=== PATIENT | male | born 1970 | race Caucasian/White ===

== ENCOUNTER 2024-05-23 01:39 | Emergency (ER) | payer BC ==
[2024-05-23 01:52] VITALS: TEMP 97.3
[2024-05-23 01:55] LABS: Glucose,Whole Blood 184 mg/dL (70-110)
[2024-05-23 01:55] LABS: ABG Base Excess -16.7 mmol/L; ABG Oxygen Saturation 99.8 % (94-97); ABG PCO2 25 mmHg (35-45); ABG PO2 381 mmHg (83-108); ABG TCO2 10 mmol/L (19-24); Allen Test Performed? Yes
[2024-05-23 01:58] LABS: ABG HCO3 10 mmol/L (21-25)
[2024-05-23] MEDS: SODIUM CHLORIDE 0.9% 1,000 ML IV ONE ×3 (02:00→02:41)
--- NOTE | 2024-05-23 02:10 | ED ---
General Adult HPI - General Stated complaint: SI attempt Source: EMS Mode of arrival: EMS Limitations: no limitations - History of Present Illness Initial comments: Patient is a 54-year-old male unknown past medical history presenting today for presumed suicide attempt. Per EMS report patient had gone to a fight with his around 9 PM during which the patient's had said she wanted to divorce him. Patient was then found later this evening around 130 unresponsive in the garage with the car running in the garage full of exhaust fumes. Nasal cannula O2 was put applied to patient and was transferred to the hospital. Blood glucose on EMS assessment was within normal limits. Of note patient has a history of prior suicide attempt where he apparently tried to shoot himself but the gun misfired. History is limited as patient is currently altered at this time and not answering questions. - Related Data Home Medications Medication Instructions Recorded Confirmed Omeprazole 20 mg PO DAILY 08/25/16 08/25/16 lisinopriL [Zestril] 10 mg PO DAILY 08/25/16 08/25/16 metFORMIN HCL [Glucophage] 1,000 mg PO BID 08/25/16 08/25/16 Allergies Allergy/AdvReac Type Severity Reaction Status Date / Time No Known Allergies Allergy Verified 08/25/16 16:35 Review of Systems ROS Statement: Those systems with pertinent positive or pertinent negative responses have been documented in the HPI. Limitations: ROS unobtainable due to patients medical condition Past Medical History Past Medical History: Diabetes Mellitus, GERD/Reflux, Hyperlipidemia, Hypertension, Osteoarthritis (OA) History of Any Multi-Drug Resistant Organisms: None Reported Past Surgical History: No Surgical Hx Reported Past Anesthesia/Blood Transfusion Reactions: No Reported Reaction Past Psychological History: No Psychological Hx Reported Past Alcohol Use History: None Reported Past Drug Use History: None Reported General Exam - General Exam Comments Initial Comments: PE: CONSTITUTIONAL: [no apparent distress, confused appearing, eyes open, respirations unlabored] SKIN: [warm, dry, no jaundice, hives or petechiae, there appears to be some skin moddling along pt's lower sides/hips] EYES:[ pupils are equally round, extraocular movements intact without nystagmus, clear conjunctiva, non-icteric sclera] HENT: [normocephalic, atraumatic, moist mucus membranes, oropharynx clear without exudates] NECK: , [Full range of motion, normal appearance] PULMONARY: [clear to auscultation without wheezes, rhonchi, or rales, normal excursion, no accessory muscle use and no stridor] CARDIOVASCULAR:[ regular rate, rhythm, normal S1 and S2. No appreciated murmurs, rubs or gallops. Strong radial adn DP pulses with intact distal perfusion. No lower extremity edema] GASTROINTESTINAL: [soft, active bowel sounds throughout, non-tender, non- distended, no palpable masses, no rebound or guarding. No hepatosplenomegaly] MUSCULOSKELETAL: [Extremities have no gross deformity, no edema, redness, or swelling. No calf swelling ] NEUROLOGIC: [_a/o x 0, GCS 9, eyes open spontaneously, patient does not verbally respond to questions, he withdraws from pain, peers confused. Moves all extremities x 4 weakly] PSYCHIATRIC:[unable to assess] Limitations: no limitations Course Vital Signs 05/23/24 05/23/24 05/23/24 01:47 02:06 02:15 Temperature 97.3 F L Pulse Rate 106 H 96 92 Respiratory 20 16 18 Rate Blood Pressure 109/77 103/59 92/53 O2 Sat by Pulse 96 96 96 Oximetry 05/23/24 05/23/24 02:58 03:15 Temperature Pulse Rate 93 89 Respiratory 18 16 Rate Blood Pressure 104/52 102/59 O2 Sat by Pulse 96 98 Oximetry EKG Findings - EKG Comments: EKG Findings:: Initial EKG does have significant artifact so repeat EKG was obtained. Sinus tachycardia, rate 108 bpm HI interval 172 ms QRS duration 141 ms QT/QTc 360/427 ms, normal axis, right bundle branch block, T wave inversions lead V3 V4, no STEMI EKG repeated. Repeat EKG performed at 1:56 AM. Sinus tachycardia, rate 100 bpm HI interval 145 ms T wave inversion lead V3, V4, right bundle branch block present, no ST elevations or significant depressions, no STEMI Medical Decision Making - Medical Decision Making Was pt. sent in by a medical professional or institution (, PA, WELLNESS NURSE, urgent care, hospital, or usp...) When possible be specific @ -[No] Did you speak to anyone other than the patient for history (EMS, parent, family, police, friend...)? What history was obtained from this source @ -Spoke with EMS personnel, state patient was found in garage unresponsive, upon finding patient there was heavy exhaust fumes throughout the garage Did you review nursing and triage notes (agree or disagree)? Why? @ -[I reviewed nursing and triage notes] Were old charts reviewed (outside hosp., previous admission, EMS record, old E KG, old radiological studies, urgent care reports/EKG's, usp records)? Report findings @ no pror records available for review Differential Diagnosis (chest pain, altered mental status, abdominal pain women, abdominal pain men, vaginal bleeding, weakness, fever, dyspnea, syncope, headache, dizziness, GI bleed, back pain, seizure, CVA, palpatations, mental health, musculoskeletal)? @Differential Altered Mental Status: Hypoglycemia, DKA, hypercapnia, ETOH, overdose, CO poisoning, trauma, myxedema coma, HTN encephalopathy, infection, psychosis, intercranial hemorrhage, hepatic encephalopathy, CVA, this is not meant to be an all-inclusive list EKG interpreted by me (3pts min.). @ -[As above] X-rays interpreted by me (1pt min.). @No cardiomegaly, consolidations pleural effusions or pneumothorax on my assessment of chest x-ray CT interpreted by me (1pt min.). @On my review of CT brain, I see no evidence of hemorrhage or mass effect U/S interpreted by me (1pt. min.). @ -[None done] What testing was considered but not performed or refused? (CT, X-rays, U/S, labs)? Why? @ -[None] What meds were considered but not given or refused? Why? @ -[None] Did you discuss the management of the patient with other professionals (professionals i.e. , PA, WELLNESS NURSE, lab, RT, psych nurse, social security benefits interviewer, gasket supervisor, teacher, logistics officer, nurse case management)? Give summary This case was discussed with toxicology, Jt, recommended hyperbaric oxygen, case was discussed with Dr. Murphy, hyperbaarist at [facility], kindly agrees patient would benefit from hyperbaric oxygen treatment, recommends transfer for hyperbaric oxygen. Case discussed with. Dr Germain emergency medicine physician at [facility] in [place], can accept patient for transfer Was smoking cessation discussed for >3mins.? @ -[No] Was critical care preformed (if so, how long)? @Yes, 35 minutes Were there social determinants of health that impacted care today? How? (Homelessness, low income, unemployed, alcoholism, drug addiction, transportation, low edu. Level, literacy, decrease access to med. care, assisted, rehab)? @ -[No] Was there de-escalation of care discussed even if they declined (Discuss DNR or withdrawal of care, Hospice)? @ -[No] What co-morbidities impacted this encounter? (DM, HTN, Smoking, COPD, CAD, Cancer, CVA, ARF, Chemo, Hep., AIDS, mental health diagnosis, sleep apnea, mo rbid obesity)? @ -[None] Was patient admitted / discharged? Hospital course, mention meds given and route, prescriptions, significant lab abnormalities, going to OR and other pertinent info. @ -Transferred to [facility] for hyperbaric oxygen therapy Pt is a 54-year-old gentleman with unknown past medical history presenting today for unresponsiveness after being found in his garage with the car running and heavy exhaust fumes throughout the garage. Per EMS report patient had just had an argument with his , and they decided they were . Blood Glucose on their assessment was within normal limits, patient was tachycardic and normotensive on their arrival. Patient seen and assessed upon arrival to the ER, his eyes are open, he appears confused, he does not give any verbal response to questions, very slowly follows commands and withdraws from painful stimuli. He does have breath sounds bilaterally, pupils are equal round reactive to light without focal deficits. He smells strongly of exhaust. Of chief concern is carbon monoxide toxicity and pt will require hyperbaric oxygen due to altered mental status with suspected carbon monooxide exposure. patient was immediately placed on a nonrebreather mask 15 L 100% FiO2, plan for carbon monoxide level check, ABG, lactic, CBC, CMP, acetaminophen level, salicylate level, blood alcohol, UDS, CT brain, chest x-ray. Case discussed with poison control, rec adding serum osmolality concerned the patient could have also ingested toxic alcohols after being found in the garage. This was added to patient's labs, they agree with plan for transferring for hyperbaric oxygen. We [place] attempt to [place] [facility] was told by their transfer center hyperbaric oxygen. Contacted [facility], case discussed with Dr. Andrade, see recs above. Pt accepted for transfer to [facility] ED to ED. On reassessment patient is more alert, he is able to state his name, more readily follows commands. ABG showed pH 7.20, pCO2 24.6, pO2 381, SpO2 9.8%, carbon oxide level 36.3%, methemoglobin level 0.6%,. Of note patient was petitioned by police for suspected suicide attempt. Discussed with patient, and now at bedside, need for and plan for transfer. They are agreeable w/ POC. Patient did briefly become hypotensive with a MAP of 62, status post almost 2 L normal saline boluses, third liter was ordered I suspect patient will have a high lactic acid and this will be required to help him clear the lactic, no documented history of heart failure. After initiating 3 L normal saline, blood pressure improved to 104/62 with a MAP of 71. His mentation continues to improve. Labs over significant for white blood cell count of 12.3, creatinine 1.59, there is no prior in our records to compare to, GFR 48, CK 268, troponin within normal limits, salicylates and acetaminophen levels are undetectable, blood alcohol 37. Air transport was attempted to be arranged in order to expidite hyperbaric O2 however due to whether this was unable to be arranged. Pt transferred via ground transport in stable condition. Undiagnosed new problem with uncertain prognosis? @ -[No] Drug Therapy requiring intensive monitoring for toxicity (Heparin, Nitro, Insulin, Cardizem)? @ -[No] Were any procedures done? @ -[No] Diagnosis/symptom? Carbon monoxide poisoning Acute, or Chronic, or Acute on Chronic? Acute Uncomplicated (without systemic symptoms) or Complicated (systemic symptoms)? Complicated Side effects of treatment? @ -[No] Exacerbation, Progression, or Severe Exacerbation? @ -[No] Poses a threat to life or bodily function? How? (Chest pain, [place], NV, pneumonia, PE, COPD, DKA, ARF, appy, cholecystitis, CVA, Diverticulitis, Homicidal, Suicidal, threat to staff... and all critical care pts) @Yes, could pose risk of permanent neurologic dysfunction and if left untreated - Lab Data Result diagrams: 05/23/24 01:54 05/23/24 01:54 Lab Results 05/23/24 05/23/24 05/23/24 Range/Units 01:43 01:52 01:54 WBC 12.3 H (3.8-10.6) k/uL RBC 4.70 (4.30-5.90) m/uL Hgb 14.2 (13.0-17.5) gm/dL Hct 43.8 (39.0-53.0) % MCV 93.2 (80.0-100.0) fL MCH 30.2 (25.0-35.0) pg MCHC 32.3 (31.0-37.0) g/dL RDW 13.1 (11.5-15.5) % Plt Count 380 (150-450) k/uL MPV 7.4 Neutrophils % 77 % Lymphocytes % 16 % Monocytes % 6 % Eosinophils % 0 % Basophils % 0 % Neutrophils # 9.4 H (1.3-7.7) k/uL Lymphocytes # 2.0 (1.0-4.8) k/uL Monocytes # 0.7 (0-1.0) k/uL Eosinophils # 0.1 (0-0.7) k/uL Basophils # 0.0 (0-0.2) k/uL PT (10.0-12.5) sec INR (<1.2) APTT (22.0-30.0) sec Sample Site rrad ABG pH 7.20 L (7.35-7.45) ABG pCO2 25 L (35-45) mmHg ABG pO2 381 H (83-108) mmHg ABG HCO3 10 L* (21-25) mmol/L ABG Total CO2 10 L (19-24) mmol/L ABG O2 Saturation 99.8 H (94-97) % ABG Base Excess -16.7 mmol/L Dawit Test Yes Hemoglobin 13.7 (13.0-17.5) gm/dL Carbon Monoxide, Quant (<10.0) % FiO2 100 % Sodium (137-145) mmol/L Potassium (3.5-5.1) mmol/L Chloride (98-107) mmol/L Carbon Dioxide (22-30) mmol/L Anion Gap mmol/L BUN (9-20) mg/dL Creatinine (0.66-1.25) mg/dL Est GFR (CKD-EPI)AfAm (>60 ml/min/1.73 sqM) Est GFR (CKD-EPI)NonAf (>60 ml/min/1.73 sqM) Glucose (74-99) mg/dL POC Glucose (mg/dL) 184 H (70-110) mg/dL POC Glu Parts Technician ID Juan Burgos Osmolality ([phone]) mOsm/kg Lactic Ac Sepsis Rflx Plasma Lactic Acid Franki (0.7-2.0) mmol/L Calcium (8.4-10.2) mg/dL Total Bilirubin (0.2-1.3) mg/dL AST (17-59) U/L ALT (4-49) U/L Alkaline Phosphatase (38-126) U/L Creatine Kinase (55-170) U/L Troponin I (0.000-0.034) ng/mL Total Protein (6.3-8.2) g/dL Albumin (3.5-5.0) g/dL Salicylates mg/dL Urine Opiates Screen (NotDetected) Ur Oxycodone Screen (NotDetected) Urine Methadone Screen (NotDetected) Acetaminophen ug/mL Ur Barbiturates Screen (NotDetected) U Tricyclic Antidepress (NotDetected) Ur Phencyclidine Scrn (NotDetected) Ur Amphetamines Screen (NotDetected) U Methamphetamines Scrn (NotDetected) U Benzodiazepines Scrn (NotDetected) Urine Cocaine Screen (NotDetected) U Marijuana (THC) Screen (NotDetected) Serum Alcohol mg/dL 05/23/24 05/23/24 05/23/24 Range/Units 01:54 01:54 01:54 WBC (3.8-10.6) k/uL RBC (4.30-5.90) m/uL Hgb (13.0-17.5) gm/dL Hct (39.0-53.0) % MCV (80.0-100.0) fL MCH (25.0-35.0) pg MCHC (31.0-37.0) g/dL RDW (11.5-15.5) % Plt Count (150-450) k/uL MPV Neutrophils % % Lymphocytes % % Monocytes % % Eosinophils % % Basophils % % Neutrophils # (1.3-7.7) k/uL Lymphocytes # (1.0-4.8) k/uL Monocytes # (0-1.0) k/uL Eosinophils # (0-0.7) k/uL Basophils # (0-0.2) k/uL PT 12.4 (10.0-12.5) sec INR 1.1 (<1.2) APTT 22.7 (22.0-30.0) sec Sample Site ABG pH (7.35-7.45) ABG pCO2 (35-45) mmHg ABG pO2 (83-108) mmHg ABG HCO3 (21-25) mmol/L ABG Total CO2 (19-24) mmol/L ABG O2 Saturation (94-97) % ABG Base Excess mmol/L Dawit Test Hemoglobin (13.0-17.5) gm/dL Carbon Monoxide, Quant (<10.0) % FiO2 % Sodium 139 (137-145) mmol/L Potassium 4.6 (3.5-5.1) mmol/L Chloride 104 (98-107) mmol/L Carbon Dioxide 8 L* (22-30) mmol/L Anion Gap 27 mmol/L BUN 18 (9-20) mg/dL Creatinine 1.59 H (0.66-1.25) mg/dL Est GFR (CKD-EPI)AfAm 56 (>60 ml/min/1.73 sqM) Est GFR (CKD-EPI)NonAf 48 (>60 ml/min/1.73 sqM) Glucose 176 H (74-99) mg/dL POC Glucose (mg/dL) (70-110) mg/dL POC Glu Parts Technician ID Osmolality ([phone]) mOsm/kg Lactic Ac Sepsis Rflx Plasma Lactic Acid Franki (0.7-2.0) mmol/L Calcium 10.0 (8.4-10.2) mg/dL Total Bilirubin 0.5 (0.2-1.3) mg/dL AST 34 (17-59) U/L ALT 33 (4-49) U/L Alkaline Phosphatase 47 (38-126) U/L Creatine Kinase 268 H (55-170) U/L Troponin I <0.012 (0.000-0.034) ng/mL Total Protein 7.7 (6.3-8.2) g/dL Albumin 4.8 (3.5-5.0) g/dL Salicylates <1.0 mg/dL Urine Opiates Screen (NotDetected) Ur Oxycodone Screen (NotDetected) Urine Methadone Screen (NotDetected) Acetaminophen <10.0 ug/mL Ur Barbiturates Screen (NotDetected) U Tricyclic Antidepress (NotDetected) Ur Phencyclidine Scrn (NotDetected) Ur Amphetamines Screen (NotDetected) U Methamphetamines Scrn (NotDetected) U Benzodiazepines Scrn (NotDetected) Urine Cocaine Screen (NotDetected) U Marijuana (THC) Screen (NotDetected) Serum Alcohol 37 mg/dL 05/23/24 05/23/24 05/23/24 Range/Units 01:54 01:54 02:04 WBC (3.8-10.6) k/uL RBC (4.30-5.90) m/uL Hgb (13.0-17.5) gm/dL Hct (39.0-53.0) % MCV (80.0-100.0) fL MCH (25.0-35.0) pg MCHC (31.0-37.0) g/dL RDW (11.5-15.5) % Plt Count (150-450) k/uL MPV Neutrophils % % Lymphocytes % % Monocytes % % Eosinophils % % Basophils % % Neutrophils # (1.3-7.7) k/uL Lymphocytes # (1.0-4.8) k/uL Monocytes # (0-1.0) k/uL Eosinophils # (0-0.7) k/uL Basophils # (0-0.2) k/uL PT (10.0-12.5) sec INR (<1.2) APTT (22.0-30.0) sec Sample Site ABG pH (7.35-7.45) ABG pCO2 (35-45) mmHg ABG pO2 (83-108) mmHg ABG HCO3 (21-25) mmol/L ABG Total CO2 (19-24) mmol/L ABG O2 Saturation (94-97) % ABG Base Excess mmol/L Dawit Test Hemoglobin (13.0-17.5) gm/dL Carbon Monoxide, Quant >20.0 H* (<10.0) % FiO2 % Sodium (137-145) mmol/L Potassium (3.5-5.1) mmol/L Chloride (98-107) mmol/L Carbon Dioxide (22-30) mmol/L Anion Gap mmol/L BUN (9-20) mg/dL Creatinine (0.66-1.25) mg/dL Est GFR (CKD-EPI)AfAm (>60 ml/min/1.73 sqM) Est GFR (CKD-EPI)NonAf (>60 ml/min/1.73 sqM) Glucose (74-99) mg/dL POC Glucose (mg/dL) (70-110) mg/dL POC Glu Parts Technician ID Osmolality ([phone]) mOsm/kg Lactic Ac Sepsis Rflx Plasma Lactic Acid Franki 11.6 H* (0.7-2.0) mmol/L Calcium (8.4-10.2) mg/dL Total Bilirubin (0.2-1.3) mg/dL AST (17-59) U/L ALT (4-49) U/L Alkaline Phosphatase (38-126) U/L Creatine Kinase (55-170) U/L Troponin I (0.000-0.034) ng/mL Total Protein (6.3-8.2) g/dL Albumin (3.5-5.0) g/dL Salicylates mg/dL Urine Opiates Screen Not Detected (NotDetected) Ur Oxycodone Screen Not Detected (NotDetected) Urine Methadone Screen Not Detected (NotDetected) Acetaminophen ug/mL Ur Barbiturates Screen Not Detected (NotDetected) U Tricyclic Antidepress Not Detected (NotDetected) Ur Phencyclidine Scrn Not Detected (NotDetected) Ur Amphetamines Screen Not Detected (NotDetected) U Methamphetamines Scrn Not Detected (NotDetected) U Benzodiazepines Scrn Not Detected (NotDetected) Urine Cocaine Screen Not Detected (NotDetected) U Marijuana (THC) Screen Not Detected (NotDetected) Serum Alcohol mg/dL 05/23/24 05/23/24 Range/Units 02:06 03:17 WBC (3.8-10.6) k/uL RBC (4.30-5.90) m/uL Hgb (13.0-17.5) gm/dL Hct (39.0-53.0) % MCV (80.0-100.0) fL MCH (25.0-35.0) pg MCHC (31.0-37.0) g/dL RDW (11.5-15.5) % Plt Count (150-450) k/uL MPV Neutrophils % % Lymphocytes % % Monocytes % % Eosinophils % % Basophils % % Neutrophils # (1.3-7.7) k/uL Lymphocytes # (1.0-4.8) k/uL Monocytes # (0-1.0) k/uL Eosinophils # (0-0.7) k/uL Basophils # (0-0.2) k/uL PT (10.0-12.5) sec INR (<1.2) APTT (22.0-30.0) sec Sample Site ABG pH (7.35-7.45) ABG pCO2 (35-45) mmHg ABG pO2 (83-108) mmHg ABG HCO3 (21-25) mmol/L ABG Total CO2 (19-24) mmol/L ABG O2 Saturation (94-97) % ABG Base Excess mmol/L Dawit Test Hemoglobin (13.0-17.5) gm/dL Carbon Monoxide, Quant (<10.0) % FiO2 % Sodium (137-145) mmol/L Potassium (3.5-5.1) mmol/L Chloride (98-107) mmol/L Carbon Dioxide (22-30) mmol/L Anion Gap mmol/L BUN (9-20) mg/dL Creatinine (0.66-1.25) mg/dL Est GFR (CKD-EPI)AfAm (>60 ml/min/1.73 sqM) Est GFR (CKD-EPI)NonAf (>60 ml/min/1.73 sqM) Glucose (74-99) mg/dL POC Glucose (mg/dL) (70-110) mg/dL POC Glu Parts Technician ID Osmolality 314 H ([phone]) mOsm/kg Lactic Ac Sepsis Rflx Y Plasma Lactic Acid Franki (0.7-2.0) mmol/L Calcium (8.4-10.2) mg/dL Total Bilirubin (0.2-1.3) mg/dL AST (17-59) U/L ALT (4-49) U/L Alkaline Phosphatase (38-126) U/L Creatine Kinase (55-170) U/L Troponin I (0.000-0.034) ng/mL Total Protein (6.3-8.2) g/dL Albumin (3.5-5.0) g/dL Salicylates mg/dL Urine Opiates Screen (NotDetected) Ur Oxycodone Screen (NotDetected) Urine Methadone Screen (NotDetected) Acetaminophen ug/mL Ur Barbiturates Screen (NotDetected) U Tricyclic Antidepress (NotDetected) Ur Phencyclidine Scrn (NotDetected) Ur Amphetamines Screen (NotDetected) U Methamphetamines Scrn (NotDetected) U Benzodiazepines Scrn (NotDetected) Urine Cocaine Screen (NotDetected) U Marijuana (THC) Screen (NotDetected) Serum Alcohol mg/dL Disposition Clinical Impression: Carbon monoxide poisoning Disposition: OTHER INSTITUTION NOT DEFINED Condition: Stable Referrals: Demario Costa MD [Primary Care Provider] - 1-2 days - Out of Hospital Transfer - Req. Specs Out of Hospital Transfer - Requested Specifics: Other Emergency Center ([facility])
--- NOTE | 2024-05-23 02:18 | XR ---
EXAM: XR Chest, 1 View CLINICAL HISTORY: pt found unresponsive in garage by . Possible suicide attempt, had one 2 years ago per EMS . Altered mental status TECHNIQUE: Frontal view of the chest. COMPARISON: No relevant prior studies available. FINDINGS: Lungs: Unremarkable. No consolidation. Pleural space: Unremarkable. Mediastinum: Unremarkable. Normal mediastinal contour. Bones/joints: No acute findings. IMPRESSION: No acute findings.
[2024-05-23 02:20] LABS: Basophils % (A) 0 %; Eosinophils # (A) 0.1 k/uL (0-0.7); Eosinophils % (A) 0 %; HCT 43.8 % (39.0-53.0); HGB 14.2 gm/dL (13.0-17.5); Lymphocytes % (A) 16 %; MCH 30.2 pg (25.0-35.0); MCHC 32.3 g/dL (31.0-37.0); MCV 93.2 fL (80.0-100.0); Mean Platelet Volume 7.4; Monocytes # (A) 0.7 k/uL (0-1.0); Monocytes % (A) 6 %; Neutrophils # (A) 9.4 k/uL (1.3-7.7); Neutrophils % (A) 77 %; Platelet Count 380 k/uL (150-450); RDW 13.1 % (11.5-15.5); WBC 12.3 k/uL (3.8-10.6)
[2024-05-23 02:41] LABS: ALT 33 U/L (4-49); AST 34 U/L (17-59); Acetaminophen <10.0 ug/mL; African American GFR (CKD) 56 (>60 ml/min/1.73 sqM); Albumin 4.8 g/dL (3.5-5.0); Alcohol 37 mg/dL; Alkaline Phosphatase 47 U/L (38-126); Anion Gap 27 mmol/L; Blood Urea Nitrogen 18 mg/dL (9-20); Chloride 104 mmol/L (98-107); Creatine Kinase 268 U/L (55-170); Glucose 176 mg/dL (74-99); Non-African American GFR(CKD) 48 (>60 ml/min/1.73 sqM); Potassium 4.6 mmol/L (3.5-5.1); Salicylate <1.0 mg/dL; Sodium 139 mmol/L (137-145); Total Bilirubin 0.5 mg/dL (0.2-1.3); Total Protein 7.7 g/dL (6.3-8.2)
[2024-05-23 02:44] LABS: Carbon Dioxide 8 mmol/L (22-30)
--- NOTE | 2024-05-23 03:02 | CT ---
EXAM: CT Head Without Intravenous Contrast CLINICAL HISTORY: unresponsive in garage by . Possible suicide attempt, had one 2 years ago per EMS possible carbon monoxide poisoning: Altered mental status carbon monoxide poisoning TECHNIQUE: Axial computed tomography images of the head/brain without intravenous contrast. CTDI is 49.1 mGy and DLP is 1213.4 mGy-cm. This CT exam was performed using one or more of the following dose reduction techniques: automated exposure control, adjustment of the mA and/or kV according to patient size, and/or use of iterative reconstruction technique. Coronal and sagittal reconstructions are performed. 274 images COMPARISON: No relevant prior studies available. FINDINGS: Brain: Unremarkable. No hemorrhage. No significant white matter disease. No edema. Ventricles: Unremarkable. No ventriculomegaly. Bones/joints: No acute findings. Soft tissues: Unremarkable. Sinuses: 6 mm polyp versus retention cyst in the lateral right maxillary sinus. Mastoid air cells: Unremarkable as visualized. No mastoid effusion. IMPRESSION: No acute findings in the head/brain.
[2024-05-23] MEDS: SODIUM CHLORIDE 0.9% 1,000 ML IV SCH (03:12)
[2024-05-23 03:16] VITALS: BP 102/59; PULSE 89; RESP 16
[2024-05-23 03:20] LABS: INR 1.1 (<1.2); Partial Thromboplastin Time 22.7 sec (22.0-30.0); Prothrombin Time 12.4 sec (10.0-12.5)
[2024-05-23 03:27] LABS: Amphetamine Screen,Urine Not Detected (NotDetected); Barbiturate Screen,Urine Not Detected (NotDetected); Benzodiazepines Screen,Urine Not Detected (NotDetected); Cocaine Screen,Urine Not Detected (NotDetected); Methadone Screen, Urine Not Detected (NotDetected); Opiate Screen,Urine Not Detected (NotDetected); Oxycodone Screen, Urine Not Detected (NotDetected); Phencyclidine Screen,Urine Not Detected (NotDetected); Tricyclic Antidepressant,Urine Not Detected (NotDetected); Urn Cannabinoid Scrn Not Detected (NotDetected)
== END 2024-05-23 03:54 | disposition other institution (70) ==
LOC: EC 01:39
DX: T58.91XA Toxic effect of carbon monoxide from unspecified source, accidental (unintentional), initial encounter (principal); I45.10 Unspecified right bundle-branch block
CPT/HCPCS: 36415; 36600; 70450; 71045; 80053; 80143; 80179; 80306; 80320; 82375; 82550; 82805; 83605; 83930; 84484; 85025; 85610; 85730; 93005; 96360; 96361; 99291